=== PATIENT | male | born 1965 | race Caucasian/White ===

== ENCOUNTER 2019-10-10 16:57 | Emergency (ER) | payer OTHER ==
[2019-10-10 17:27] VITALS: BP 151/85
[2019-10-10 17:50] LABS: Influenza A Molecular Negative (Negative); Influenza B Molecular Negative (Negative)
--- NOTE | 2019-10-10 18:34 | UC ---
FLU HPI - HPI Summary HPI Summary: 53-year-old male comes in with influenza-like symptoms which started today. He has fevers chills and body aches and headaches and mild nausea. He has not taken any [id number] medications. He has been exposed to somebody with influenza. Patient denies any sputum production. Denies any urinary tract infection symptoms. No history of prostatitis. - History of Current Complaint Chief Complaint: UCGeneralIllness Stated Complaint: BODYACHES Time Seen by Provider: 10/10/19 18:21 Pain Intensity: 6 - Allergy/Home Medications Allergies/Adverse Reactions: Allergies Allergy/AdvReac Type Severity Reaction Status Date / Time No Known Allergies Allergy Verified 10/22/15 07:22 Home Medications: Home Medications Meloxicam 15 mg PO DAILY PRN 10/10/19 [History Confirmed 10/10/19] Omeprazole 20 mg PO DAILY 10/10/19 [History Confirmed 10/10/19] Oseltamivir CAP* [Tamiflu CAP*] 75 mg PO BID #10 cap 10/10/19 [Rx] Rizatriptan Benzoate [Rizatriptan] 20 mg PO DAILY PRN 10/10/19 [History Confirmed 10/10/19] PMH/Surg Hx/FS Hx/Imm Hx Previously Healthy: Yes Neurological History: Migraine - Surgical History Surgical History: Yes Surgery Procedure, Year, and Place: lasix. colonoscopy - Family History Known Family History: Positive: Non-Contributory - Social History Alcohol Use: Occasionally Substance Use Type: None Smoking Status (MU): Former Smoker Review of Systems All Other Systems Reviewed And Are Negative: Yes Constitutional: Positive: Fever, Chills, Other - see hpi Skin: Positive: Negative Eyes: Positive: Negative ENT: Positive: Nasal Discharge Respiratory: Positive: Negative Cardiovascular: Positive: Negative Gastrointestinal: Positive: Nausea Genitourinary: Positive: Negative Motor: Positive: Negative Neurovascular: Positive: Negative Musculoskeletal: Positive: Myalgia Neurological/Mental Status: Positive: Headache Psychological: Positive: Negative Is Patient Immunocompromised?: No Physical Exam Triage Information Reviewed: Yes Appearance: No Pain Distress, Well-Nourished, Ill-Appearing - mild Vital Signs: Initial Vital Signs Temp 103 F 10/10/19 17:20 Pulse 87 10/10/19 17:20 Resp 18 10/10/19 17:20 BP 151/85 10/10/19 17:20 Pulse Ox 96 10/10/19 17:20 Vital Signs Reviewed: Yes Eye Exam: Normal Eyes: Positive: Conjunctiva Clear ENT: Positive: Nasal congestion, TMs normal Neck: Positive: Supple Respiratory: Positive: Lungs clear, Normal breath sounds, No respiratory distress Cardiovascular: Positive: RRR Musculoskeletal: Positive: Strength Intact, ROM Intact Neurological: Positive: Alert, Muscle Tone Normal Psychological: Positive: Age Appropriate Behavior Skin: Positive: Rashes Flu Course/Dx - Course Course Of Treatment: Influenza swabs are negative. Patient has influenza-like illness. We discussed whether or not to start the Tamiflu at this time. Patient prefers to try the Tamiflu. Also will treat symptomatically. No evidence at this time of any alternate infection such as prostatitis. Patient will treat symptomatically and get reevaluated if not completely improved or worse or any questions or concerns. - Differential Dx/Diagnosis Provider Diagnosis: Influenza-like illness Discharge ED - Sign-Out/Discharge Documenting (check all that apply): Patient Departure All imaging exams completed and their final reports reviewed: No Studies - Discharge Plan Condition: Stable Disposition: HOME Prescriptions: Oseltamivir CAP* [Tamiflu CAP*] 75 mg PO BID #10 cap Patient Education Materials: Influenza (ED) Referrals: Leighton Sanz MD [Primary Care Provider] - Additional Instructions: FOLLOW UP WITH YOUR DOCTOR IF NOT COMPLETELY IMPROVED. GET REEVALUATED SOONER IF NOT IMPROVED OR WORSE OR ANY QUESTIONS OR CONCERNS. - Billing Disposition and Condition Condition: STABLE Disposition: Home
== END 2019-10-10 18:44 | disposition home or self-care (01) ==
LOC: UCEAST 16:57
DX: R50.9 Fever, unspecified (principal); M79.10 Myalgia, unspecified site; G43.909 Migraine, unspecified, not intractable, without status migrainosus; J34.89 Other specified disorders of nose and nasal sinuses; Z87.891 Personal history of nicotine dependence
CPT/HCPCS: 99212; G0463